=== PATIENT | male | born 1980 | race Caucasian/White ===

== ENCOUNTER 2016-08-07 11:07 | Emergency (ER) | payer OTHER ==
--- NOTE | 2016-08-07 11:26 | ER Document Report ---
ED Medical Screen (RME) - General Chief Complaint: Headache Stated Complaint: HEADACHE Time seen by provider: 11:23 Mode of Arrival: Ambulatory Information source: Patient Notes: 35-year-old male presents to ED for headache last night that lasted A Half and Has Been Dull Ever since. He states last night when his head with a closed that is worse he blacked out does not know if he was had a seizure because he was by himself. He denies any incontinence of urine or stool. He denies any injuries states he has a history of seizures. States he is not on medications for seizures. States his last seizure was 2 weeks ago and he was on medication 3 years ago but the neurologist moved out of the area. States he was on Keppra I have greeted and performed a rapid initial assessment of this patient. A comprehensive ED assessment and evaluation of the patient, analysis of test results and completion of medical decision making process will be conducted by an additional ED providers. - Related Data Allergies/Adverse Reactions: No Known Allergies Allergy (Unverified 08/08/11 12:45) Past Medical History Neurological Medical History: Reports: Hx Seizures - Immunizations Hx Diphtheria, Pertussis, Tetanus Vaccination: Yes
[2016-08-07 12:19] LABS: ABSOLUTE EOSINOPHILS # (AUTO) 0.1 10^3/uL (0.0-0.6); ABSOLUTE LYMPHOCYTES (AUTO) 2.5 10^3/uL (0.5-4.7); ABSOLUTE MONOCYTES (AUTO) 0.7 10^3/uL (0.1-1.4); ABSOLUTE NEUT (AUTO) 4.2 10^3/uL (1.7-8.2); BASOPHILS % (AUTO) 0.4 % (0-2); EOSINOPHILS % (AUTO) 0.7 % (0-6); HEMATOCRIT 46.8 % (37.9-51.0); HEMOGLOBIN 15.7 g/dL (13.5-17.0); HGB HCT DIFFERENCE 0.3; LYMPHOCYTES % (AUTO) 33.4 % (13-45); MEAN CORPUSCULAR HEMOGLOBIN 29.8 pg (27.0-33.4); MEAN CORPUSCULAR HGB CONC 33.4 g/dL (32.0-36.0); MEAN CORPUSCULAR VOLUME 89 fl (80-97); MONOCYTES % (AUTO) 9.2 % (3-13); RED BLOOD COUNT 5.25 10^6/uL (4.35-5.55); RED CELL DISTRIBUTION WIDTH 13.4 % (11.5-14.0); SEGMENTED NEUTROPHILS % (AUTO) 56.3 % (42-78); WHITE BLOOD COUNT 7.5 10^3/uL (4.0-10.5)
[2016-08-07 12:20] LABS: APPEARANCE,URINE CLEAR; BILIRUBIN,URINE NEGATIVE (NEGATIVE); GLUCOSE, URINE NEGATIVE (NEGATIVE); KETONES,URINE NEGATIVE (NEGATIVE); LEUKOCYTE ESTERASE,URINE NEGATIVE (NEGATIVE); NITRITE,URINE NEGATIVE (NEGATIVE); PROTEIN,URINE NEGATIVE (NEGATIVE); UROBILINOGEN,URINE NEGATIVE mg/dL (<2.0)
[2016-08-07 12:43] LABS: ALANINE AMINOTRANSFERASE 53 U/L (21-72); ALKALINE PHOSPHATASE 69 U/L (38-126); ANION GAP 13 (5-19); ASPARTATE AMINO TRANSFERASE 34 U/L (17-59); BILIRUBIN,TOTAL 0.7 mg/dL (0.2-1.3); BLOOD UREA NITROGEN 18 mg/dL (7-20); CALCIUM 10.1 mg/dL (8.4-10.2); CARBON DIOXIDE 28 mmol/L (22-30); CHLORIDE 102 mmol/L (98-107); CREATININE RESULT 1.12 mg/dL (0.52-1.25); GLUCOSE 93 mg/dL (75-110); POTASSIUM 4.7 mmol/L (3.6-5.0); SODIUM 143.1 mmol/L (137-145); TOTAL PROTEIN 7.7 g/dL (6.3-8.2)
--- NOTE | 2016-08-07 13:22 | ER Document Report ---
ED General - General Chief Complaint: Headache Stated Complaint: HEADACHE Time seen by provider: 13:18 Mode of Arrival: Ambulatory Information source: Patient Notes: 85-year-old male who complains about a diffuse bilateral headache which she says it been present since last night. Patient reports a history of seizure disorder since age 25 which presents as an loss of consciousness followed by confusion and twitching which she says witnesses told him last for a few minutes and then improved. The patient reports a one point he was on Keppra and then switch to Vimpat reports his neurologist moved [place] about 4 years ago and he stopped taking his medication. Patient thinks he had one of his usual seizures about 2 weeks ago and since that time has been having sharp pain in the left occipital region. He says his current headache began after coming to facility thinks was a syncopal episode that occurred while having sex and he is not sure if that episode was one of his usual seizures or not because he says he doesn't typically get headaches like this. He denies any difficulty with speech or swallowing. He denies double vision, numbness or focal weakness to extremities, or other recent illness. Physical Exam: General: Alert, appears well. HEENT: Normocephalic. Atraumatic. PERRLA. Extraocular movements intact. Oropharynx clear. Neck: Supple. Non-tender. No JVD no nuchal rigidity Respiratory: No respiratory distress. Clear and equal breath sounds bilaterally. Cardiovascular: Regular rate and rhythm. Abdominal: Normal Inspection. Soft, non-tender. No distension. Normal Bowel Sounds. Back: Non-tender. No deformity or step off. Extremities: Moves all four extremities. Upper extremities: Normal inspection. Non-tender. Normal color. Normal ROM. Normal temperature. Lower extremities: Normal inspection. Non-tender. No edema. Normal color. Normal ROM. Normal temperature. Neurological: Cranial nerves III-XII grossly intact bilaterally. Strength 5/5 throughout. Sensation intact to light touch. Normal cognition. AAOx4. Normal speech. Cerebellar function intact by finger-nose test bilaterally Psychological: Normal affect. Normal Mood. Skin: Warm. Dry. Normal color. TRAVEL OUTSIDE OF THE [place] IN LAST 30 DAYS: Yes COUNTRY TRAVELED TO/FROM: DR - Related Data Allergies/Adverse Reactions: No Known Allergies Allergy (Unverified 08/08/11 12:45) Past Medical History - General Information source: Patient - Social History Smoking Status: Never Smoker Family History: None Patient has suicidal ideation: No Patient has homicidal ideation: No Neurological Medical History: Reports: Hx Seizures Renal/ Medical History: Denies: Hx Peritoneal Dialysis - Immunizations Hx Diphtheria, Pertussis, Tetanus Vaccination: Yes Review of Systems - Review of Systems Constitutional: denies: Chills, Fever EENT: denies: Ear pain, Throat pain Cardiovascular: Syncope. denies: Chest pain Respiratory: denies: Cough, Short of breath Gastrointestinal: denies: Abdominal pain, Nausea, Vomiting Genitourinary: denies: Burning, Dysuria Musculoskeletal: denies: Back pain, Ankle swelling Hematologic/Lymphatic: denies: Swollen glands Neurological/Psychological: denies: Weakness, Numbness Physical Exam - Vital signs Vitals: Temp Pulse Resp BP Pulse Ox 97.8 F 57 L 20 129/73 H 97 08/07/16 11:23 08/07/16 11:23 08/07/16 11:23 08/07/16 11:23 08/07/16 11:23 Course - Re-evaluation Re-evalutation: 08/07/16 14:18 Patient has had no single episodes or seizures during his stay in emergency department. I have a low suspicion for subarachnoid hemorrhage even though he does report this headache is different than what she's had previously. As he is reporting history of seizure disorder and we'll start him on Vimpat 50 mg twice a day and ask him to follow-up with neurology. He is instructed that this could either be the previous neurologist that he was seeing in [place] or Dr. Paredes who is here locally though I note that he is not transportation maintenance specialist for neurology now. It is certainly possible to the patient's reported syncopal episode was one of his typical seizures. - Vital Signs Vital signs: Temp Pulse Resp BP Pulse Ox 97.8 F 57 L 20 129/73 H 97 08/07/16 11:23 08/07/16 11:23 08/07/16 11:23 08/07/16 11:23 08/07/16 11:23 - Laboratory Result Diagrams: 08/07/16 11:50 08/07/16 11:50 - Diagnostic Test Radiology reviewed: Image reviewed, Reports reviewed Discharge - Discharge Clinical Impression: Seizure disorder Syncope Qualifiers: Syncope type: unspecified Qualified Code(s): R55 - Syncope and collapse Headache Qualifiers: Headache type: unspecified Headache chronicity pattern: acute headache Intractability: not intractable Qualified Code(s): R51 - Headache Condition: Stable Disposition: HOME, SELF-CARE Additional Instructions: Seizure, Known Epileptic You have had a seizure. Seizures may "break through" in an epileptic due to stress of infection or injury, a change in blood chemistry, or drug and alcohol use. Another common cause is failure to take medication as prescribed. Your doctor has evaluated your situation for the likely cause of this seizure. It is important that you follow his advice concerning any medication changes and follow-up care. Further testing of anti-seizure medication levels in your blood may be necessary. If you have a [place] driver's license, it's important that you DO NOT DRIVE until given permission by your physician. This seizure must be reported to the [place] driver 's license bureau. Call the doctor or return if seizures recur, or if new or unusual symptoms arise -- such as severe headache, confusion, excessive sleepiness, local weakness or numbness, neck stiffness, or fever. Prescriptions: Lacosamide [Vimpat 50 Mg Tablet] 50 mg PO BID #20 tablet Referrals: ABIDA CRUZ MD [Primary Care Provider] - Follow up as needed () ABUNDIO PAREDES MD [EMERITUS] - Follow up in 1 week
[2016-08-07 14:46] VITALS: BP 114/70
== END 2016-08-07 14:46 | disposition home or self-care (01) ==
LOC: ER 11:07
DX: G40.909 Epilepsy, unspecified, not intractable, without status epilepticus (principal); R55 Syncope and collapse; R51 Headache
CPT/HCPCS: 36415; 70450; 80053; 81001; 85025; 99284